=== PATIENT | female | born 1990 | race Caucasian/White ===

== ENCOUNTER 2019-02-03 18:20 | Observation (INO) | payer SELFPAY ==
[~2019-02-03] VITALS: Ht 160 cm; Wt 77.0 kg
[2019-02-03] MEDS ORDERED: ACETAMINOPHEN 325MG TABLET PO ONE (20:30)
[2019-02-03] MEDS ORDERED: ONDANSETRON HCL 4MG TABLET PO ONE (20:30)
[2019-02-03] MEDS ORDERED: OSELTAMIVIR 75MG CAPSULE PO ONE (22:45)
[2019-02-03 23:28] VITALS: BP 101/47
[2019-02-04] MEDS ORDERED: PREN1TAB78 MT (00:11)
== END 2019-02-04 00:25 | disposition home or self-care (01) ==
LOC: ER 18:20 → 8 EST LDRP 23:36
PROVIDERS: ADMIT Obstetrics & Gynecology; ATTEND Obstetrics & Gynecology
DX: O99.513 Diseases of the respiratory system complicating pregnancy, third trimester (principal); J06.9 Acute upper respiratory infection, unspecified; Z3A.32 32 weeks gestation of pregnancy
CPT/HCPCS: 87804; 99284; G0378; Q0162; 99281